=== PATIENT | female | born 1985 | race Caucasian/White ===

== ENCOUNTER 2024-01-08 16:00 | Outpatient (REF) | payer MEDICAID, SELFPAY ==
[2024-01-08 21:30] LABS: Anion Gap 14.3 mmol/L (3-11); BUN 8 mg/dL (7-18); CO2 24.7 mmol/L (21.0-32.0); CREATININE 0.8 mg/dL (0.55-1.02); Calcium 9.8 mg/dL (8.5-10.1); Calculated LDL 92 mg/dL (<100); Chloride 96 mmol/L (98-107); Cholesterol 174 mg/dL (<200); Estimated GFR 97.26 (mL/min/1.73m2); Glucose 436 mg/dL (74-106); HDL Cholesterol 41 mg/dL (40-60); Potassium 4.8 mmol/L (3.5-5.1); Sodium 135 mmol/L (136-145); Triglyceride 207 mg/dL (<150)
== END 2024-01-08 16:01 | disposition home or self-care (01) ==
LOC: NCHCN 16:00
PROVIDERS: PCP Nurse Practitioner Family; Visit Provider Family Medicine
DX: R73.01 Impaired fasting glucose (principal); L29.3 Anogenital pruritus, unspecified; R68.89 Other general symptoms and signs; E66.8 Other obesity
CPT/HCPCS: 80048; 80061; 84443; 87480; 87510; 87660

== ENCOUNTER 2024-01-11 13:45 | Outpatient (CLI) | payer MEDICAID, SELFPAY ==
[2024-01-11 15:45] LABS: Hemoglobin A1C 11.8 % (<5.7)
== END 2024-01-11 13:46 | disposition home or self-care (01) ==
LOC: LBO 13:46
PROVIDERS: PCP Nurse Practitioner Family; Visit Provider Family Medicine
DX: E11.65 Type 2 diabetes mellitus with hyperglycemia (principal)
CPT/HCPCS: 36415; 83036

== ENCOUNTER 2024-02-12 15:59 | Outpatient (REF) | payer MEDICAID, SELFPAY ==
--- NOTE | 2024-02-12 15:15 | PAPFT_PTH ---
PATIENT: Nancy Arthur LOC: [facility]#:[id number] AGE/SX: 39/F ROOM: RE02/12/[address]: Ina Middleton : 1985 BED: DIS: 02/12/2024 SPEC #: [id number] RECD: 02/15/24 12:48 STATUS: UBALDO REJohn #: [id number] SHAHAB: 02/12/24 15:[address]: Ina Middleton DEPT: [facility] Cytology RECD BY: Yany Espana ENTERED: 02/15/24 12:48 SP TYPE: PAPFT OTHR DR: Elsy Bright Tissues: 1 - CX/ENDOCX FOR PAP SMEARS Procedures: PAP THIN PREP/[facility] Screening HPV DNA PROBE Comments: [id number]
[2024-02-15 09:09] LABS: Insulin 3.8 uIU/mL (<29.0)
[2024-02-15 18:34] LABS: C-Peptide 1.6 ng/mL (1.1 - 4.4)
[2024-02-18 18:53] LABS: GAD65 Ab Assay 0.08 nmol/L (<= 0.02)
== END 2024-02-12 16:00 | disposition home or self-care (01) ==
LOC: NCHCN 15:59
PROVIDERS: PCP Nurse Practitioner Family; Visit Provider Family Medicine
DX: E11.65 Type 2 diabetes mellitus with hyperglycemia (principal)
CPT/HCPCS: 86341; 88142; 83525; 84681; 87624

== ENCOUNTER 2024-02-23 14:22 | Outpatient (CLI) | payer MEDICAID, SELFPAY ==
[2024-02-29 09:12] LABS: Misc Referral (MAYO) See Comments
== END 2024-02-23 14:23 | disposition home or self-care (01) ==
LOC: LBO 03-03 14:23
PROVIDERS: Visit Provider Family Medicine
DX: E11.65 Type 2 diabetes mellitus with hyperglycemia (principal)
CPT/HCPCS: 36415; 84630; 86337; 86341; 83525

== ENCOUNTER 2025-02-14 15:46 | Outpatient (REF) | payer MEDICAID, SELFPAY ==
[2025-02-14 22:09] LABS: HCT 37.6 % (36.0-46.0); HGB 13.6 g/dL (11.2-15.7); MCH 29.6 pg (27.0-33.0); MCHC 36.2 % (32.0-36.0); MCV 82 fL (80-95); Platelet Count 248 10^3/uL (130-400); RDW 13.2 % (11.7-14.6); RDW-SD 39.1 fL; WBC 8.31 10^3/uL (4.4-10.8)
[2025-02-14 22:22] LABS: ALT 27 U/L (14-59); AST 17 U/L (15-37); Albumin 3.7 g/dL (3.4-5.0); Alkaline Phosphatase 102 U/L (46-116); Anion Gap 6.2 mmol/L (3-11); BUN 16 mg/dL (7-18); Bilirubin, Total 0.5 mg/dL (0.2-1.0); CO2 29.8 mmol/L (21.0-32.0); CREATININE 0.7 mg/dL (0.55-1.02); Calcium 9.2 mg/dL (8.5-10.1); Calculated LDL 75 mg/dL (<100); Chloride 105 mmol/L (98-107); Cholesterol 135 mg/dL (<200); Estimated GFR 112.75 (mL/min/1.73m2); Glucose 165 mg/dL (74-106); HDL Cholesterol 47 mg/dL (>or=50); Potassium 4.3 mmol/L (3.5-5.1); Sodium 141 mmol/L (136-145); Total Protein 6.6 g/dL (6.4-8.2); Triglyceride 65 mg/dL (<150)
[2025-02-14 22:28] LABS: COMMENT (LAB VIEW ONLY) 126.91 mg/dL; Microalb ug/mg Crea 9.1 ug/mg Cr
[2025-02-14 22:28] LABS: Hemoglobin A1C 6.4 % (<5.7)
[2025-02-15 16:32] LABS: TSH 1.27 uIU/mL (0.36-3.74)
== END 2025-02-14 15:47 | disposition home or self-care (01) ==
LOC: NCHCN 15:46
PROVIDERS: Visit Provider Family Medicine
DX: E11.65 Type 2 diabetes mellitus with hyperglycemia (principal)
CPT/HCPCS: 80053; 80061; 85027; 82043; 82570; 83036; 84443